=== PATIENT | male | born 1960 | race Caucasian/White ===

== ENCOUNTER 2017-03-16 20:36 | Emergency (ER) | payer OTHER ==
[~2017-03-16] VITALS: Ht 182.9 cm; Wt 100.0 kg
[2017-03-16 20:37] VITALS: BP 172/95; PULSE 106; RESP 16; TEMP 99.4; O2SAT 96
[2017-03-16] MEDS ORDERED: ASPI81CH7 CHEW (21:20)
[2017-03-16] MEDS ORDERED: AZIL40TA2 PO (21:20)
[2017-03-16] MEDS ORDERED: ROSU10 PO (21:20)
[2017-03-16] MEDS ORDERED: NIFE10 PO (21:20)
[2017-03-16] MEDS ORDERED: METF1000 PO (21:20)
[2017-03-16] MEDS ORDERED: ONGL5TAB PO (21:20)
[2017-03-16] MEDS ORDERED: TOPR25TA PO (21:20)
[2017-03-16] MEDS ORDERED: GLIM1TAB PO (21:20)
[2017-03-16] MEDS ORDERED: HYDR-3801 PO (21:20)
[2017-03-16] MEDS ORDERED: COLC1TAB15 PO (21:20)
[2017-03-16] MEDS ORDERED: FISHCAP4 PO (21:20)
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
[2017-03-16] MEDS ORDERED: TETANUS/DIPHTHERIA TOXOID ADULT 0.5 ML VIAL IM ONE (21:30)
[2017-03-16] MEDS ORDERED: AMOXICILLIN/CLAVULANATE K 875 MG TAB PO ONE (21:30)
[2017-03-16] MEDS ORDERED: AUGM875T3 PO (21:50)
== END 2017-03-16 22:03 | disposition home or self-care (01) ==
LOC: NEPE 20:36
DX: S51.851A Open bite of right forearm, initial encounter (principal); E11.9 Type 2 diabetes mellitus without complications; I10 Essential (primary) hypertension; Y04.1XXA Assault by human bite, initial encounter; Y92.149 Unspecified place in prison as the place of occurrence of the external cause; Y99.0 Civilian activity done for income or pay; Z23 Encounter for immunization; Z79.82 Long term (current) use of aspirin; Z79.899 Other long term (current) drug therapy
CPT/HCPCS: 90471; 90714